=== PATIENT | female | born 1945 | race Caucasian/White ===

== ENCOUNTER 2022-04-10 10:45 | Day surgery (SDC) | payer OTHER ==
[2022-04-04 11:28] VITALS: BMI 28.3
[2022-04-10 12:54] VITALS: TEMP 97.6
[2022-04-10 13:06] VITALS: BP 120/53; PULSE 79
== END 2022-04-10 13:15 | disposition home or self-care (01) ==
LOC: FASU-ENDO 10:45
PROVIDERS: ATTEND Internal Medicine Gastroenterology
PROC: 0DB88ZX Excision of Small Intestine, Via Natural or Artificial Opening Endoscopic, Diagnostic (ICD-10-PCS; 2022-04-10)
PROC: 0DB68ZX Excision of Stomach, Via Natural or Artificial Opening Endoscopic, Diagnostic (ICD-10-PCS; 2022-04-10)
PROC: 0DB48ZX Excision of Esophagogastric Junction, Via Natural or Artificial Opening Endoscopic, Diagnostic (ICD-10-PCS; 2022-04-10)
PROC: 0DB98ZX Excision of Duodenum, Via Natural or Artificial Opening Endoscopic, Diagnostic (ICD-10-PCS; principal; 2022-04-10 11:59)
DX: K29.50 Unspecified chronic gastritis without bleeding (principal); K20.90 Esophagitis, unspecified without bleeding; K22.89 Other specified disease of esophagus; B96.81 Helicobacter pylori [H. pylori] as the cause of diseases classified elsewhere; R10.13 Epigastric pain
CPT/HCPCS: 82962; 88305-TC; 88342-TC

== ENCOUNTER 2023-05-21 09:57 | Day surgery (SDC) | payer OTHER ==
[2023-05-16 11:51] VITALS: BMI 25.9
[2023-05-21 11:41] VITALS: TEMP 98
[2023-05-21 11:54] VITALS: BP 118/79; PULSE 67; RESP 19
== END 2023-05-21 12:04 | disposition home or self-care (01) ==
LOC: FASU-ENDO 09:57
PROVIDERS: ATTEND Internal Medicine Gastroenterology
PROC: 0DBL8ZX Excision of Transverse Colon, Via Natural or Artificial Opening Endoscopic, Diagnostic (ICD-10-PCS; principal; 2023-05-21 11:10)
DX: Z12.11 Encounter for screening for malignant neoplasm of colon (principal); K63.5 Polyp of colon; K64.1 Second degree hemorrhoids; K57.30 Diverticulosis of large intestine without perforation or abscess without bleeding
CPT/HCPCS: 82962

== ENCOUNTER 2023-11-05 12:58 | Emergency (ER) | payer OTHER ==
[2023-11-05 13:06] VITALS: BP 150/76; PULSE 73; RESP 18; TEMP 98; BMI 25.7
[2023-11-05 14:40] LABS: BASO % 0.8 % (0-2.0); EOS % 1.9 % (0-4.5); HEMATOCRIT 38.5 % (32.4-45.2); HEMOGLOBIN 12.5 GM/dL (10.7-15.3); LYMPH % 43.2 % (8-40); MCHC 32.5 g/dl (32.0-36.0); MEAN CELL VOLUME 92.5 fl (80-96); MEAN PLT VOLUME 10.2 fl (7.5-11.1); MONO % 7.5 % (3.8-10.2); NEUT % 46.6 % (42.8-82.8); PLATELET COUNT 227 10^3/uL (134-434); RBC 4.16 M/mm3 (3.60-5.2); RDW 15.1 % (11.6-15.6); WHITE BLOOD COUNT 5.8 K/mm3 (4.0-10.0)
[2023-11-05 14:47] LABS: EPI CELLS 9 /uL (0-25.1); HYALINE CASTS 0 /uL (0-3.1); URINE APPEARANCE CLEAR; URINE BACTERIA 21 /uL (0-1359); URINE BILIRUBIN NEGATIVE (NEGATIVE); URINE COLOR YELLOW; URINE GLUCOSE (UA) 3+ (NEGATIVE); URINE KETONE NEGATIVE (NEGATIVE); URINE LEUK ESTERASE TRACE (NEGATIVE); URINE NITRITE NEGATIVE (NEGATIVE); URINE PROTEIN TRACE (NEGATIVE); URINE RBC 8 /uL (0-23.9); URINE UROBILINOGEN 0.2 mg/dL (0.2-1.0); URINE WBC 31 /uL (0-25.8)
[2023-11-05 14:59] LABS: POTASSIUM 4.3 mmol/L (3.5-5.1)
[2023-11-05 15:01] LABS: CALCIUM 10.1 mg/dL (8.5-10.1)
[2023-11-05 15:02] LABS: ALBUMIN 3.8 g/dl (3.4-5.0); BLOOD UREA NITROGEN 24.5 mg/dL (7-18); MAGNESIUM 2.1 mg/dL (1.8-2.4)
[2023-11-05 15:05] LABS: CREATININE 1.1 mg/dL (0.55-1.3); PHOSPHOROUS 3.8 mg/dL (2.5-4.9)
[2023-11-05 15:07] LABS: BILIRUBIN,TOTAL 0.6 mg/dL (0.2-1); TOT PROT 7.8 g/dl (6.4-8.2)
== END 2023-11-05 16:39 | disposition home or self-care (01) ==
LOC: JER 12:58
DX: E87.6 Hypokalemia (principal); Z00.01 Encounter for general adult medical examination with abnormal findings
CPT/HCPCS: 36415; 80053; 81003; 83735; 84100; 85025; 87086; 87186; 93005; 93010; 99283-25